=== PATIENT | female | born 1980 | race Caucasian/White ===

== ENCOUNTER → 2018-03-22 | Outpatient (CLI) | payer BC ==
[2018-03-22 17:35] LABS: Basophils # (A) 0.1 k/uL (0-0.2); Basophils % (A) 1 %; Eosinophils # (A) 0.2 k/uL (0-0.7); Eosinophils % (A) 2 %; HCT 42.2 % (34.0-46.0); HGB 13.8 gm/dL (11.4-16.0); Lymphocytes # (A) 1.6 k/uL (1.0-4.8); Lymphocytes % (A) 16 %; MCH 28.2 pg (25.0-35.0); MCHC 32.7 g/dL (31.0-37.0); MCV 86.3 fL (80.0-100.0); Mean Platelet Volume 7.5; Monocytes # (A) 0.4 k/uL (0-1.0); Monocytes % (A) 4 %; Neutrophils # (A) 8.1 k/uL (1.3-7.7); Neutrophils % (A) 77 %; Platelet Count 298 k/uL (150-450); RDW 14.6 % (11.5-15.5); WBC 10.5 k/uL (3.8-10.6)
== END | disposition home or self-care (01) ==
LOC: LABPAT 16:52
PROVIDERS: ATTEND Obstetrics & Gynecology
DX: Z01.812 Encounter for preprocedural laboratory examination (principal)
CPT/HCPCS: 36415; 85025

== ENCOUNTER 2018-03-25 05:44 | Day surgery (SDC) | payer BC ==
[2018-03-23 11:41] VITALS: BMI 29.8
--- NOTE | 2018-03-24 17:11 | P.HPOB ---
History of Present Illness H&P Date: 03/24/18 Chief Complaint: Dysfunctional uterine bleeding This patient is a pleasant 38-year-old 2 para 2 female who is referred to me Asya Rios for dysfunctional uterine bleeding and abnormal pelvic ultrasound. Patient was having regular menstrual cycles until February 08 at which time she had been bleeding on a daily basis. Ultrasound showed abnormal endometrial thickening to 1.8 cm. Hemoglobin was stable but she continues to bleed daily. Patient now presents for hysteroscopy and D&C for further evaluation. Review of Systems Genitourinary: Reports as per HPI, Reports abnormal vaginal bleeding Past Medical History Past Medical History: Cancer Additional Past Medical History / Comment(s): " occ. heartburn", hx kidney stone , hx skin cancer History of Any Multi-Drug Resistant Organisms: None Reported Past Surgical History: Appendectomy, Section, Tubal Ligation Additional Past Surgical History / Comment(s): laproscopic surgery x 3, C/S x 2 , removal of skin cancer from left ear Past Anesthesia/Blood Transfusion Reactions: No Reported Reaction Past Psychological History: No Psychological Hx Reported Smoking Status: Never smoker Past Alcohol Use History: None Reported Past Drug Use History: None Reported - Past Family History Mother Family Medical History: No Reported History Medications and Allergies Home Medications Medication Instructions Recorded Confirmed Type Calcium(Dose Unknown) 1 tab PO DAILY 03/23/18 03/23/18 History Ibuprofen [Motrin] 400 mg PO DIRECTED PRN 03/23/18 03/23/18 History Multivitamins, Thera [Multivitamin 1 tab PO DAILY 03/23/18 03/23/18 History (formulary)] Allergies Allergy/AdvReac Type Severity Reaction Status Date / Time No Known Allergies Allergy Verified 03/23/18 11:32 Exam - OBG Physical Exam Abdomen: bowel sounds normal, no diffuse tenderness, no bruit present, no guarding noted, no hepatomegaly, no splenomegaly, no mass Vulva: both: normal Vagina: normal moisture, no discharge Cervix: no lesion, no discharge Uterus: normal size, normal contour Results Transvaginal ultrasound showed endometrial thickening to 1.8 cm. Assessment and Plan Assessment: This is a pleasant 38-year-old 2 para 2 female with recent onset of dysfunctional uterine bleeding and abnormal pelvic ultrasound. Plan is hysteroscopy, D&C for further evaluation and treatment. Patient does understand the surgery and risks including risks of infection, bleeding, possible uterine perforation. All the patient's questions are answered and a written consent is obtained. (1) Dysfunctional uterine bleeding Status: Chronic Code(s): N93.8 - OTHER SPECIFIED ABNORMAL UTERINE AND VAGINAL BLEEDING SNOMED Code(s): 19173299
[~2018-03-25 05:44] MED LIST: Pre Op ABX Message 1 EACH MISC MISCELLANE ONE
[2018-03-25] MEDS ORDERED: DEXAMETHASONE SOD PHOSPHATE 10 MG/ML 1 ML VIAL IV ONE (05:49)
[2018-03-25] MEDS ORDERED: MIDAZOLAM 2 MG/2 ML VIAL IV PRN (05:49)
[2018-03-25] MEDS ORDERED: HYDROmorphone 0.5 MG/0.5 ML SYRINGE IVP PRN (05:49)
[2018-03-25] MEDS ORDERED: LIDOCAINE 1% 20 ML VIAL (10MG/ML) FOR IV START INTRADERMA PRN (05:49)
[2018-03-25] MEDS ORDERED: ONDANSETRON 4 MG/2 ML VIAL IVP ONE (05:49)
[2018-03-25] MEDS ORDERED: SCOPOLAMINE 1.5MG/72HR PATCH TRANSDERM ONE (05:49)
[2018-03-25] MEDS ORDERED: LACTATED RINGERS 1,000 ML IV SCH (05:49)
[2018-03-25] MEDS ORDERED: PROPOFOL 10 MG/ML 20 ML VIAL IV ONE (06:56)
[2018-03-25] MEDS ORDERED: LIDOCAINE 1% INJ 10MG/ML (20 ML MDV) ONE (06:56)
[2018-03-25] MEDS ORDERED: KETOROLAC 30 MG/ML 1 ML VIAL ONE (06:56)
[2018-03-25] MEDS ORDERED: fentaNYL (PF) 50 MCG/ML 2 ML AMP ONE (06:56)
[2018-03-25] MEDS ORDERED: MIDAZOLAM 2 MG/2 ML VIAL ONE (06:56)
[2018-03-25] MEDS ORDERED: SUCCINYLCHOLINE CHLORIDE 100 MG/5 ML SYR IV ONE (06:56)
--- NOTE | 2018-03-25 07:28 | P.OP ---
Date of Procedure: 03/25/18 Preoperative Diagnosis: Dysfunctional uterine bleeding and abnormal ultrasound of the endometrium Postoperative Diagnosis: Same Procedure(s) Performed: #1: Hysteroscopy. #2: Dilation and curettage Anesthesia: ANKITA Surgeon: Gonzalo Ho Estimated Blood Loss (ml): 15 Urine output (ml): 20 Pathology: other (Uterine curettings) Condition: stable Disposition: PACU Indications for Procedure: Please see dictated H&P for intimate details of this patient's admission. Brief summary this is a pleasant 38-year-old female who is referred to in for evaluation of dysfunctional uterine bleeding. Patient ultrasound showed abnormal thickening to 1.8 cm and has continued to bleed and therefore presents for hysteroscopy D&C for further evaluation. Patient does understand the surgery and risks including risks of infection, bleeding, possible uterine perforation. All the patient's questions are answered and a written consent is obtained. Operative Findings: This patient had some abnormal thickening of the anterior wall of the uterus. Description of Procedure: This patient is taken to the operating room where she is laid in the supine position. She subsequently undergoes general endotracheal anesthesia without incident. With adequate level of anesthesia she's placed in the dorsal lithotomy position. As a vaginal perineal prep and drape. Examination under anesthesia shows a mid position uterus of normal size. Please weighted speculum posterior vagina. The bladder is drained for 20 mL of clear urine. I grabbed the anterior lip of the cervix with an Allis clamp. Uterus sounded to 10 cm. This done gentle dilation is done to allow the hysteroscope easily and the uterine cavity. Hysteroscopy is performed and the anterior wall the uterus did show some abnormal thickening. With this done the hysteroscope was then removed. Cervix is dilated easily to at this point allow a polyp forceps into the uterine cavity. I also place a large uterine curette and do a vigorous and thorough 4 quadrant curettage. A generous amount of tissue is removed and the area of the anterior endometrium I believe has been removed and samples. With this done the procedure is then ended. The Allis clamp and weighted speculum were removed. All counts are correct 3. There are no complications. Patient is awakened from anesthesia and taken recovery room satisfactory condition.
[2018-03-25 07:41] VITALS: TEMP 97.2
[2018-03-25 08:19] VITALS: RESP 18
[2018-03-25 09:02] VITALS: BP 106/72; PULSE 88
== END 2018-03-25 09:09 | disposition home or self-care (01) ==
LOC: OR 05:44
PROVIDERS: ATTEND Obstetrics & Gynecology
DX: N93.8 Other specified abnormal uterine and vaginal bleeding (principal); K21.9 Gastro-esophageal reflux disease without esophagitis; Z85.828 Personal history of other malignant neoplasm of skin; Z87.442 Personal history of urinary calculi; Z98.51 Tubal ligation status
CPT/HCPCS: 81025; 88305; 58558; J2250; J1100; J2405; J2001; J3010; J1885; J0330; J2704

== ENCOUNTER → 2018-06-25 | Outpatient (CLI) | payer BC ==
[2018-06-25 11:28] LABS: Basophils % (A) 1 %; Eosinophils # (A) 0.2 k/uL (0-0.7); Eosinophils % (A) 3 %; HCT 36.2 % (34.0-46.0); HGB 11.6 gm/dL (11.4-16.0); Hypochromasia Slight; Lymphocytes # (A) 1.9 k/uL (1.0-4.8); Lymphocytes % (A) 30 %; MCH 27.7 pg (25.0-35.0); MCHC 32.2 g/dL (31.0-37.0); MCV 86.2 fL (80.0-100.0); Mean Platelet Volume 7.6; Monocytes # (A) 0.4 k/uL (0-1.0); Monocytes % (A) 6 %; Neutrophils # (A) 3.7 k/uL (1.3-7.7); Neutrophils % (A) 58 %; Platelet Count 348 k/uL (150-450); RDW 13.6 % (11.5-15.5); WBC 6.4 k/uL (3.8-10.6)
== END | disposition home or self-care (01) ==
LOC: LABPAT 10:57
PROVIDERS: ATTEND Obstetrics & Gynecology
DX: Z01.812 Encounter for preprocedural laboratory examination (principal)
CPT/HCPCS: 36415; 85025

== ENCOUNTER 2019-12-03 11:46 | Emergency (ER) | payer BC ==
[2019-12-03 11:52] VITALS: RESP 18; TEMP 97.8
[2019-12-03] MEDS ORDERED: MORPHINE SULFATE 4 MG/ML SYRINGE IVP STA (12:15)
[2019-12-03] MEDS ORDERED: ONDANSETRON 4 MG/2 ML VIAL IVP STA (12:15)
[2019-12-03 13:03] LABS: Basophils # (A) 0.1 k/uL (0-0.2); Basophils % (A) 2 %; Eosinophils # (A) 0.3 k/uL (0-0.7); Eosinophils % (A) 3 %; HCT 46.1 % (34.0-46.0); HGB 15.3 gm/dL (11.4-16.0); Lymphocytes # (A) 1.9 k/uL (1.0-4.8); Lymphocytes % (A) 23 %; MCH 29.3 pg (25.0-35.0); MCHC 33.1 g/dL (31.0-37.0); MCV 88.5 fL (80.0-100.0); Mean Platelet Volume 7.7; Monocytes # (A) 0.3 k/uL (0-1.0); Monocytes % (A) 4 %; Neutrophils # (A) 5.5 k/uL (1.3-7.7); Neutrophils % (A) 67 %; Platelet Count 270 k/uL (150-450); RBC 5.21 m/uL (3.80-5.40); RDW 12.6 % (11.5-15.5); WBC 8.2 k/uL (3.8-10.6)
--- NOTE | 2019-12-03 13:03 | ED ---
Abdominal Pain HPI - General Chief Complaint: Abdominal Pain Stated Complaint: rt sided pain Time Seen by Provider: 12/03/19 11:50 Source: patient Mode of arrival: ambulatory Limitations: no limitations - History of Present Illness Initial Comments: The patient is a 39 old female with past history of kidney stones who presents to the emergency department with reported right upper quadrant abdominal pain. She states that her pain has been present since . She describes it as an intermittent cramping sensation which radiates around to her back. She states the pain is worse at night and when she eats foods. She is had minimal appetite. She admits nausea without vomiting. She denies a history of similar in the past. Denies any changes in her urination. Denies diarrhea, constipation, melanotic stools or hematochezia. No abdominal vaginal bleeding or discharge. No concern for . She did see her primary care doctor on Wednesday. They performed an abdominal ultrasound and laboratory studies. They were concerned for a renal stone and placed the patient on Ultram. They also thought that she had a dilated common bile duct. The patient continued to have pain and therefore came into the emergency room for further evaluation. - Related Data Home Medications Medication Instructions Recorded Confirmed No Known Home Medications 12/07/19 12/07/19 Allergies Allergy/AdvReac Type Severity Reaction Status Date / Time No Known Allergies Allergy Verified 12/07/19 14:13 Review of Systems ROS Statement: Those systems with pertinent positive or pertinent negative responses have been documented in the HPI. ROS Other: All systems not noted in ROS Statement are negative. Past Medical History Past Medical History: Cancer Additional Past Medical History / Comment(s): " occ. heartburn", hx kidney stone, hx skin cancer History of Any Multi-Drug Resistant Organisms: None Reported Past Surgical History: Appendectomy, Section, Tubal Ligation Additional Past Surgical History / Comment(s): laproscopic surgery x 3, C/S x 2, removal of skin cancer from left ear Past Anesthesia/Blood Transfusion Reactions: No Reported Reaction Past Psychological History: No Psychological Hx Reported Smoking Status: Never smoker Past Alcohol Use History: None Reported Past Drug Use History: None Reported - Past Family History Mother Family Medical History: No Reported History General Exam Limitations: no limitations General appearance: alert, in no apparent distress Head exam: Present: atraumatic, normocephalic, normal inspection Eye exam: Present: normal appearance, PERRL, EOMI. Absent: scleral icterus, conjunctival injection, periorbital swelling ENT exam: Present: normal exam, mucous membranes moist Neck exam: Present: normal inspection. Absent: tenderness, meningismus, lymphadenopathy Respiratory exam: Present: normal lung sounds bilaterally. Absent: respiratory distress, wheezes, rales, rhonchi, stridor Cardiovascular Exam: Present: normal rhythm, tachycardia, normal heart sounds. Absent: systolic murmur, diastolic murmur, rubs, gallop, clicks GI/Abdominal exam: Present: soft, tenderness (right upper quadrant), normal bowel sounds. Absent: distended, guarding, rebound, rigid Extremities exam: Present: normal inspection, full ROM, normal capillary refill. Absent: tenderness, pedal edema, joint swelling, calf tenderness Back exam: Present: normal inspection Neurological exam: Present: alert, oriented X3, CN II-XII intact Psychiatric exam: Present: normal affect, normal mood Skin exam: Present: warm, dry, intact, normal color. Absent: rash Course Vital Signs 12/03/19 12/03/19 11:49 16:07 Temperature 97.8 F Pulse Rate 118 H 98 Respiratory 18 18 Rate Blood Pressure 154/88 136/79 O2 Sat by Pulse 99 100 Oximetry Medical Decision Making - Medical Decision Making Upon arrival the patient was placed into room 25. A thorough history and physical exam was performed. Peripheral IV was established. The patient was given 4 mg of morphine for pain control and 4 mg of Zofran for nausea. I did recommend repeating laboratory studies. I also recommended CT of the patient's abdomen and pelvis and a call bladder ultrasound. Laboratory studies are essent ially unremarkable. Urinalysis is negative. CT of the patient's abdomen demonstrates nonobstructing bilateral nephrolithiasis. Follicular changes of both ovaries. Gallbladder ultrasound demonstrates no signs of cholelithiasis or acute cholecystitis. I reevaluated the patient and her pain is improved. I discussed diagnosis, differential and treatment plan. I do believe the patient may have biliary colic and therefore I did recommend further evaluation by a surgeon. At this time the patient will be discharged home and needs to call her primary care physician. I do believe that she needs a HIDA scan. I did give her follow-up information for Dr. Ellis's office. The patient is given a short prescription for [place]. I also prescribed her Zofran. She's had opioids start talking form. She is to take the medications as directed and follow up. She has any new or worsening symptoms she should return to the emergency department. Patient was in agreement treatment plan she is discharged home in stable condition - Lab Data Result diagrams: 12/03/19 12:50 12/03/19 12:50 Lab Results 12/03/19 12/03/19 12/03/19 Range/Units 12:50 12:50 12:50 WBC 8.2 (3.8-10.6) k/uL RBC 5.21 (3.80-5.40) m/uL Hgb 15.3 (11.4-16.0) gm/dL Hct 46.1 H (34.0-46.0) % MCV 88.5 (80.0-100.0) fL MCH 29.3 (25.0-35.0) pg MCHC 33.1 (31.0-37.0) g/dL RDW 12.6 (11.5-15.5) % Plt Count 270 (150-450) k/uL Neutrophils % 67 % Lymphocytes % 23 % Monocytes % 4 % Eosinophils % 3 % Basophils % 2 % Neutrophils # 5.5 (1.3-7.7) k/uL Lymphocytes # 1.9 (1.0-4.8) k/uL Monocytes # 0.3 (0-1.0) k/uL Eosinophils # 0.3 (0-0.7) k/uL Basophils # 0.1 (0-0.2) k/uL Sodium 138 (137-145) mmol/L Potassium 4.0 (3.5-5.1) mmol/L Chloride 104 (98-107) mmol/L Carbon Dioxide 28 (22-30) mmol/L Anion Gap 6 mmol/L BUN 9 (7-17) mg/dL Creatinine 0.73 (0.52-1.04) mg/dL Est GFR (CKD-EPI)AfAm >90 (>60 ml/min/1.73 sqM) Est GFR (CKD-EPI)NonAf >90 (>60 ml/min/1.73 sqM) Glucose 96 (74-99) mg/dL Plasma Lactic Acid Regulo (0.7-2.0) mmol/L Calcium 9.2 (8.4-10.2) mg/dL Total Bilirubin 0.4 (0.2-1.3) mg/dL AST 25 (14-36) U/L ALT 21 (4-34) U/L Alkaline Phosphatase 92 (38-126) U/L Total Protein 7.6 (6.3-8.2) g/dL Albumin 4.5 (3.5-5.0) g/dL Lipase 31 (23-300) U/L Urine Color Urine Appearance (Clear) Urine pH (5.0-8.0) Ur Specific [place] (1.001-1.035) Urine Protein (Negative) Urine Glucose (UA) (Negative) Urine Ketones (Negative) Urine Blood (Negative) Urine Nitrite (Negative) Urine Bilirubin (Negative) Urine Urobilinogen (<2.0) mg/dL Ur Leukocyte Esterase (Negative) Urine HCG, Qual Not Detected (Not Detectd) 12/03/19 12/03/19 Range/Units 12:50 12:50 WBC (3.8-10.6) k/uL RBC (3.80-5.40) m/uL Hgb (11.4-16.0) gm/dL Hct (34.0-46.0) % MCV (80.0-100.0) fL MCH (25.0-35.0) pg MCHC (31.0-37.0) g/dL RDW (11.5-15.5) % Plt Count (150-450) k/uL Neutrophils % % Lymphocytes % % Monocytes % % Eosinophils % % Basophils % % Neutrophils # (1.3-7.7) k/uL Lymphocytes # (1.0-4.8) k/uL Monocytes # (0-1.0) k/uL Eosinophils # (0-0.7) k/uL Basophils # (0-0.2) k/uL Sodium (137-145) mmol/L Potassium (3.5-5.1) mmol/L Chloride (98-107) mmol/L Carbon Dioxide (22-30) mmol/L Anion Gap mmol/L BUN (7-17) mg/dL Creatinine (0.52-1.04) mg/dL Est GFR (CKD-EPI)AfAm (>60 ml/min/1.73 sqM) Est GFR (CKD-EPI)NonAf (>60 ml/min/1.73 sqM) Glucose (74-99) mg/dL Plasma Lactic Acid Regulo 0.8 (0.7-2.0) mmol/L Calcium (8.4-10.2) mg/dL Total Bilirubin (0.2-1.3) mg/dL AST (14-36) U/L ALT (4-34) U/L Alkaline Phosphatase (38-126) U/L Total Protein (6.3-8.2) g/dL Albumin (3.5-5.0) g/dL Lipase (23-300) U/L Urine Color Yellow Urine Appearance Clear (Clear) Urine pH 5.5 (5.0-8.0) Ur Specific [place] 1.017 (1.001-1.035) Urine Protein Negative (Negative) Urine Glucose (UA) Negative (Negative) Urine Ketones Negative (Negative) Urine Blood Negative (Negative) Urine Nitrite Negative (Negative) Urine Bilirubin Negative (Negative) Urine Urobilinogen <2.0 (<2.0) mg/dL Ur Leukocyte Esterase Negative (Negative) Urine HCG, Qual (Not Detectd) - EKG Data EKG Comments: EKG demonstrates normal sinus rhythm with ventricular rate of 76. AL interval 132. QRS 86. QTC of 438. No acute ST segment elevations. Inverted T waves in lead 3. Disposition Clinical Impression: Right upper quadrant abdominal pain Disposition: HOME SELF-CARE Condition: Stable Instructions (If sedation given, give patient instructions): Abdominal Pain (ED) Additional Instructions: Please follow-up with your primary care doctor in 2-4 days. I recommended a HIDA scan. Return to the emergency room for any new worsening symptoms. Is patient prescribed a controlled substance at d/c from ED?: Yes When asked, does pt state using other controlled substances?: No If prescribed controlled substance>3 days was MAPS reviewed?: Prescribed <3 Days If opioid is for acute pain is fill amount 7 days or less?: Yes If Rx opioid, was Start Talking consent form obtained?: Yes Referrals: Dorys Gurrola NPC [Primary Care Provider] - 1-2 days Colten Salter MD [STAFF PHYSICIAN] - 1-2 days Time of Disposition: 15:12
[2019-12-03 13:04] LABS: Appearance,Urine Clear (Clear); Bilirubin,Urine Negative (Negative); Blood,Urine Negative (Negative); Color,Urine Yellow; Glucose,Urine (UA) Negative (Negative); Ketones,Urine Negative (Negative); Leukocyte Esterase,Urine Negative (Negative); Nitrite,Urine Negative (Negative); PH, Urine 5.5 (5.0-8.0); Protein,Urine Negative (Negative); Specific Gravity,Urine 1.017 (1.001-1.035); Urobilinogen,Urine <2.0 mg/dL (<2.0)
[2019-12-03 13:13] LABS: ALT 21 U/L (4-34); AST 25 U/L (14-36); African American GFR (CKD) >90 (>60 ml/min/1.73 sqM); Albumin 4.5 g/dL (3.5-5.0); Alkaline Phosphatase 92 U/L (38-126); Anion Gap 6 mmol/L; Blood Urea Nitrogen 9 mg/dL (7-17); Calcium 9.2 mg/dL (8.4-10.2); Carbon Dioxide 28 mmol/L (22-30); Chloride 104 mmol/L (98-107); Glucose 96 mg/dL (74-99); Non-African American GFR(CKD) >90 (>60 ml/min/1.73 sqM); Sodium 138 mmol/L (137-145); Total Bilirubin 0.4 mg/dL (0.2-1.3); Total Protein 7.6 g/dL (6.3-8.2)
--- NOTE | 2019-12-03 13:49 | CT ---
EXAMINATION TYPE: CT abdomen pelvis w con DATE OF EXAM: 12/03/2019 REFERENCE: None. HISTORY: abdominal pain HISTORY: RUQ pain CT DLP: 904.1 mGy Automated exposure control for dose reduction was used. TECHNIQUE: Helical acquisition through the abdomen and pelvis was obtained following the oral ingesti on of without Oral Contrast and following intravenous administration of 100 mL of Isovue 300. The samuel a was reformatted in axial, coronal and sagittal projections. FINDINGS: Visualized portions of the lungs are clear. There is no pleural or pericardial fluid. The heart is not enlarged. Within the abdomen, the liver, spleen and gallbladder are normal. Both adrenal glands are normal. There is a nonobstructing there is a 6.4 mm calculus in the posterior upper pole calyx on the left. There are 2 smaller 1 to 2 mm calculi in the lower pole calyces on the left. Pancreas is unremarkable. There is no significant retroperitoneal, iliac or inguinal adenopathy. Uterus is unremarkable. There is follicular change in both ovaries. The bladder is unremarkable. There is no significant diverticular change and there is no radiographic evidence of diverticulitis. The appendix is been removed. Small bowel loops are normal in caliber. There is no free fluid and no free air identified. Osseous structures are unremarkable. IMPRESSION: 1. NONOBSTRUCTING BILATERAL NEPHROLITHIASIS. 2. STATUS POST APPENDECTOMY. 3. FOLLICULAR CHANGE WITHIN BOTH OVARIES.
--- NOTE | 2019-12-03 14:27 | US ---
EXAMINATION TYPE: US gallbladder DATE OF EXAM: 12/03/2019 COMPARISON: NONE CLINICAL HISTORY: RUQ pain, dilated CBD. RUQ pain, nausea EXAM MEASUREMENTS: Liver Length: 13.1 cm Gallbladder Wall: 0.2 cm CBD: 0.5 cm Right Kidney: 9.0 x 4.2 x 4.3 cm Technical limitations due to large amount of overlying bowel content Pancreas: Obscured by bowel gas Liver: best seen intercostally, appears wnl Gallbladder: no evidence of stones Evidence for sonographic Bazan's sign: no CBD: wnl Right Kidney: stone upper pole = 0.7cm IMPRESSION: No sonographic evidence of cholelithiasis nor acute cholecystitis. Incidentally noted non obstructing 7 mm right renal calculus.
[2019-12-03 16:08] VITALS: BP 136/79; PULSE 98
== END 2019-12-03 16:08 | disposition home or self-care (01) ==
LOC: EC 11:46
DX: R10.11 Right upper quadrant pain (principal); N20.0 Calculus of kidney; R93.89 Abnormal findings on diagnostic imaging of other specified body structures; R00.0 Tachycardia, unspecified; M54.9 Dorsalgia, unspecified; R63.8 Other symptoms and signs concerning food and fluid intake; R11.0 Nausea; Z85.828 Personal history of other malignant neoplasm of skin; Z90.49 Acquired absence of other specified parts of digestive tract; Z98.890 Other specified postprocedural states
CPT/HCPCS: 99284; 96374; 96375; 36415; 93005; 80053; 83605; 83690; 85025; 81003; 81025; 76705; 74177; J2270; J2405; Q9967

== ENCOUNTER → 2019-12-06 | Outpatient (CLI) | payer BC ==
--- NOTE | 2019-12-06 11:27 | NM ---
Nuclear medicine hepatobiliary scan. HISTORY: Pain. DOSAGE: The patient received 1.43 micrograms of CCK and 5 mCi of Technetium 99m Choletec. FINDINGS: There is normal hepatic extraction. The gallbladder is seen by 45 minutes. There is bilia ry to bowel clearance by 15 minutes. Ejection fraction is 85%. IMPRESSION: 1. No evidence of cholecystitis. 2. Ejection fraction 85% which can occasionally be seen with hyperdynamic gallbladder correlate clini yobani.
== END | disposition home or self-care (01) ==
LOC: RADNMMAIN 08:39
PROVIDERS: ATTEND Surgery
DX: K81.1 Chronic cholecystitis (principal)
CPT/HCPCS: 78227; A9537; J2805

== ENCOUNTER 2019-12-12 10:04 | Day surgery (SDC) | payer BC ==
[2019-12-07 14:19] VITALS: BMI 29.6
[~2019-12-12 10:04] MED LIST changes: +LACTATED RINGERS 1,000 ML IV SCH; -Pre Op ABX Message 1 EACH MISC MISCELLANE ONE
[2019-12-12 10:39] VITALS: TEMP 97.8
[2019-12-12] MEDS ORDERED: PROPOFOL 10 MG/ML 20 ML VIAL IV ONE (11:17)
[2019-12-12] MEDS ORDERED: LIDOCAINE 1% INJ 10MG/ML (20 ML MDV) ONE (11:17)
--- NOTE | 2019-12-12 11:23 | P.GSHP ---
History of Present Illness H&P Date: 12/12/19 Chief Complaint: Epigastric and right upper quadrant pain This a 39-year-old female with history of epigastric and right quadrant pain. Patient presents today for EGD to evaluate for gastritis. Past Medical History Past Medical History: Cancer Additional Past Medical History / Comment(s): " occ. heartburn", hx kidney stone, hx skin cancer History of Any Multi-Drug Resistant Organisms: None Reported Past Surgical History: Appendectomy, Section, Tubal Ligation Additional Past Surgical History / Comment(s): laproscopic surgery x 3, C/S x 2, removal of skin cancer from left ear Past Anesthesia/Blood Transfusion Reactions: No Reported Reaction Past Psychological History: No Psychological Hx Reported Smoking Status: Never smoker Past Alcohol Use History: None Reported Past Drug Use History: None Reported - Past Family History Mother Family Medical History: No Reported History Medications and Allergies Home Medications Medication Instructions Recorded Confirmed Type No Known Home Medications 12/07/19 12/12/19 History Allergies Allergy/AdvReac Type Severity Reaction Status Date / Time No Known Allergies Allergy Verified 12/12/19 10:34 Surgical - Exam Vital Signs Temp Pulse Resp BP Pulse Ox 97.8 F 88 17 159/109 98 12/12/19 10:38 12/12/19 10:38 12/12/19 10:38 12/12/19 10:38 12/12/19 10:38 - General well developed, well nourished, no distress - Eyes PERRL - ENT normal pinna - Neck no masses - Respiratory normal expansion - Cardiovascular Rhythm: regular - Abdomen Abdomen: soft, non tender Assessment and Plan Assessment: Epigastric pain, right upper quadrant pain. We'll perform EGD.
--- NOTE | 2019-12-12 11:35 | P.OP ---
Date of Procedure: 12/12/19 Preoperative Diagnosis: Epigastric pain Postoperative Diagnosis: Mild antral gastritis Procedure(s) Performed: EGD Anesthesia: MAC Surgeon: Colten Salter Pathology: other (Antrum) Condition: stable Disposition: PACU Description of Procedure: The patient's placed on the endoscopy table in the lateral position. She received IV sedation. The gastroscope placed oropharynx and passed in the esophagus and into the stomach. Scope was placed through the pylorus. The first second portion of the duodenum. Normal. Scope was then brought back the antrum this appeared mildly inflamed. A biopsies performed. Scope was unretroflexed and remainder of the stomach appeared normal. The GE junction was at 40 cm. The distal esophagus appeared normal. The proximal esophagus. Normal. Scope was withdrawn for patient.
[2019-12-12 11:56] VITALS: BP 124/87; PULSE 70; RESP 16
== END 2019-12-12 12:20 | disposition home or self-care (01) ==
LOC: ORWHC2ENDO 10:04
PROVIDERS: ATTEND Surgery
DX: K29.50 Unspecified chronic gastritis without bleeding (principal); B96.81 Helicobacter pylori [H. pylori] as the cause of diseases classified elsewhere; N93.8 Other specified abnormal uterine and vaginal bleeding; Z85.828 Personal history of other malignant neoplasm of skin; Z87.442 Personal history of urinary calculi; Z90.49 Acquired absence of other specified parts of digestive tract; Z98.890 Other specified postprocedural states; Z98.51 Tubal ligation status
CPT/HCPCS: 43239; 81025; 88305; 88342; J2001; J2704

== ENCOUNTER → 2019-12-18 | Day surgery (SDC) | payer BC ==
[2019-12-14 17:02] VITALS: BMI 29.6
[~2019-12-18] MED LIST changes: +BUPIVACAINE (PF) 0.25% 30 ML VIAL SQ ONE; +DEXAMETHASONE SOD PHOS (MDV) 100 MG/10 ML VIAL IVP ONE; +DEXAMETHASONE SOD PHOSPHATE 10 MG/ML 1 ML VIAL IV ONE; +HEPARIN SODIUM,PORCINE 5,000 UNIT/ML 1 ML VIAL SQ ONE; +HYDROmorphone 1 MG/ML 1 ML SYRINGE IVP ONE; +KETAMINE 10 MG/ML 20 ML VIAL ONE; +KETOROLAC 30 MG/ML 1 ML VIAL ONE; +LIDOCAINE 1% 20 ML VIAL (10MG/ML) FOR IV START INTRADERMA PRN; +LIDOCAINE 1% INJ 10MG/ML (20 ML MDV) ONE; +MIDAZOLAM 2 MG/2 ML VIAL IV PRN; +MIDAZOLAM 2 MG/2 ML VIAL ONE; +PROPOFOL 10 MG/ML 20 ML VIAL IV ONE; +ROCURONIUM BROMIDE 10 MG/ML 5 ML VIAL IV ONE; +fentaNYL (PF) 50 MCG/ML 2 ML AMP ONE
[2019-12-18] MEDS: ONDANSETRON 4 MG/2 ML VIAL IVP ONE ×2 (09:30→13:00)
--- NOTE | 2019-12-18 09:49 | P.GSHP ---
History of Present Illness H&P Date: 12/18/19 Chief Complaint: Right upper quadrant pain This a 39-year-old female previously diagnosis chronic cholecystitis. Patient has completed upper quadrant pain. HIDA scans shows abnormal ejection fraction Past Medical History Past Medical History: Cancer Additional Past Medical History / Comment(s): "occ heartburn" R/T gastritis, hx kidney stone, hx skin cancer History of Any Multi-Drug Resistant Organisms: None Reported Past Surgical History: Appendectomy, Section, Tubal Ligation Additional Past Surgical History / Comment(s): laproscopic surgery x 3, C/S x 2, removal of skin cancer from left ear. EGD 12/12/19 Past Anesthesia/Blood Transfusion Reactions: No Reported Reaction Smoking Status: Never smoker - Past Family History Mother Family Medical History: No Reported History Medications and Allergies Home Medications Medication Instructions Recorded Confirmed Type No Known Home Medications 12/07/19 12/18/19 History Allergies Allergy/AdvReac Type Severity Reaction Status Date / Time No Known Allergies Allergy Verified 12/18/19 09:09 Surgical - Exam Vital Signs Temp Pulse Resp BP Pulse Ox 98.3 F 90 16 153/79 98 12/18/19 09:28 12/18/19 09:28 12/18/19 09:28 12/18/19 09:28 12/18/19 09:28 - General well developed, well nourished, no distress - Eyes PERRL - ENT normal pinna - Neck no masses - Respiratory normal expansion - Cardiovascular Rhythm: regular - Abdomen Abdomen: soft, non tender Assessment and Plan Assessment: Require pain Chronic cholecystitis We'll perform laparoscopic cholecystectomy
--- NOTE | 2019-12-18 11:01 | P.OP ---
Date of Procedure: 12/18/19 Preoperative Diagnosis: Cholecystitis Postoperative Diagnosis: Cholecystitis Procedure(s) Performed: Laparoscopic cholecystectomy Anesthesia: ANKITA Surgeon: Colten Salter Estimated Blood Loss (ml): 5 Pathology: other (Gallbladder) Condition: stable Disposition: PACU Description of Procedure: The patient was placed on the operating table. The patient received a general endotracheal tube anesthesia. The patients abdomen was prepped and draped in the usual sterile fashion. Through an infraumbilical stab incision, the fascia of the anterior abdominal wall was grasped with a pair of Kochers and then the Veress needle was placed in the peritoneal cavity. Position of the Veress needle was confirmed with positive drop test. The abdomen was then insufflated. After adequate insufflation, the 10 mm trocar was placed in the peritoneal cavity. Following this the laparoscope was placed in the peritoneal cavity. The patient was placed in the head-up, right side up position and then a 5 mm trocar was placed in the right lateral and right subcostal position under direct visualization. A 8 mm trocar was placed in the epigastric position. The gallbladder was grasped in the fundus and infundibulum. Traction on the gallbladder was placed in the lateral and the cephalad positions. The triangle of Calot was visualized.. The cystic duct was bluntly dissected until the union of the cystic duct and common bile duct was seen. A critical view of safety was achieved. The cystic duct was then divided and sealed with the Harmonic scissors. A PDS Endoloop was then placed throughout the cystic duct stump. The cystic artery divided and sealed with the Harmonic scissors. The gallbladder was then removed from the liver bed using Harmonic scissors. The gallbladder was then extracted through the epigastric port site. Operative field was checked for any bleeding spots and Harmonic scissors was used to coagulate the liver bed. The abdomen was irrigated. The trocars were removed. The skin was closed using interrupted 3-0 Vicryl suture. Dermabond dressing were applied. The patient tolerated the procedure well.
[2019-12-18 11:06] VITALS: TEMP 97.1
[2019-12-18] MEDS: HYDROmorphone 0.5 MG/0.5 ML SYRINGE IVP PRN ×2 (11:40→11:46)
[2019-12-18 12:17] VITALS: BP 140/61; PULSE 71; RESP 16
== END | disposition home or self-care (01) ==
LOC: OR 08:30
PROVIDERS: ATTEND Surgery
DX: K81.1 Chronic cholecystitis (principal); K29.70 Gastritis, unspecified, without bleeding; K21.9 Gastro-esophageal reflux disease without esophagitis; Z87.442 Personal history of urinary calculi; Z85.828 Personal history of other malignant neoplasm of skin; Z98.51 Tubal ligation status
CPT/HCPCS: 81025; 88304; 47562; J2250; J1644; J0690; J2405; J2001; J3010; J1885; J1170 ×2; J1100; J2704